=== PATIENT | male | born 2000 | race Caucasian/White ===

== ENCOUNTER 2025-01-31 16:56 | Observation (INO) ==
--- NOTE | 2025-01-31 17:02 | Emergency Department Note ---
Impression & Plan Acute appendicitis, Hypomagnesemia ED Provider Note CHIEF COMPLAINT: Abdominal pain HISTORY OF PRESENTING ILLNESS: This 24-year-old male patient presents to the emergency department for evaluation of RLQ abdominal pain that started at 4 AM this morning. He states that it feels like his stomach is in knots. He vomited once this morning. Denies any fevers. Denies chest pain or SOB. He denies any injury or trauma. He denies any urinary symptoms. He has not had a BM today, but has been having normal soft BMs 2-3 times a day which is his normal. He denies any testicular pain. Denies any masses or lesions in his groin area. No previous abdominal surgeries. The patient has a history of Ulcerative Colitis and is on Rinvoq. His last colonoscopy was last year per patient. He follows up with [facility]. No steroid use over the past year and he feels that his UC is well controlled. Denies hematochezia, melena, hematuria, hemoptysis, or hematemesis. He took ibuprofen around 9 am this morning. The patient last ate around 4 or 5 PM yesterday. He has had sips of water today, but nothing else. REVIEW OF SYSTEMS: See HPI for pertinent positives and pertinent negatives. ALLERGIES: Amoxicillin, Keflex - rash and facial swelling MEDICATIONS: Rinvoq PAST MEDICAL HISTORY: Ulcerative Colitis PHYSICAL EXAM: VITALS: Vitals are noted on the nurse's note and reviewed by myself. GENERAL: The patient is mildly ill-appearing and also appears nauseous. However, non toxic in appearance and in no acute distress. SKIN: Capillary refill <2 sec. EYES: PERRLA. EOMI. Conjunctivae without injection, sclerae without icterus. NOSE: Patent without discharge. MOUTH: Mucous membranes moist. Uvula midline. Airway patent. NECK: Supple without nuchal rigidity. HEART: Regular rate and rhythm without murmurs gallops or rubs. LUNGS: Clear to auscultation bilaterally without wheezes, rales or rhonchi. No retractions or accessory muscle use. ABDOMEN: Positive bowel sounds x 4. Normal tympanic percussion. Soft, tender to palpation mainly in the right lower quadrant. No masses or hepatosplenomegaly. Mckeon sign negative. No CVA tenderness. No guarding, rigidity, or rebound tenderness. No focal LLQ tenderness. MUSCULOSKELETAL: No gross musculoskeletal defects. NEURO: Patient was alert and oriented. No focal neurological deficits. DIFFERENTIAL DIAGNOSIS: Differential diagnosis includes hepatitis, pancreatitis, cholecystitis, cholelithiasis, appendicitis, kidney stone, pyelonephritis, UTI, gastritis, gastroenteritis, mesenteric adenitis, obstruction, constipation, hernia, abdominal abscess, perforation, diverticulitis, IBD, ischemic colitis, abdominal aortic aneurysm, testicular torsion, prostatitis, or others. ED COURSE AND MEDICAL DECISION MAKING: MEDICATIONS GIVEN: 1 L normal saline solution bolus. Tylenol 1000 mg IV. Zofran 4 mg IV. Morphine 4 mg IV. Magnesium 1 g IV. Cipro 400 mg IV and Flagyl 500 mg IV. MONITOR: Continuous telemetry monitor: Order was placed for continuous telemetry monitor. Patient was placed on the telemetry monitor and continuous pulse ox. Patient was noted to be in normal sinus rhythm at an initial rate of 94 bpm per my interpretation. INTERPRETATION OF LABS: I interpreted the labs with full lab results as below in the lab section of this note. Laboratory results pertinent to the emergent complaint are discussed in the MDM section below. The patient was advised to follow up with their PCP and/or specialist(s) for further outpatient monitoring and management of any abnormal results. INTERPRETATION OF IMAGING: Imaging studies were interpreted by myself and read by radiology as per the imaging section of this note. The patient was advised to follow up with their PCP and/or specialist(s) for further outpatient management of any non-emergent abnormal findings. CT scan of the abdomen and pelvis with IV contrast shows acute appendicitis with appendicolith present and no rupture or acute complication at this time. CHRONIC MEDICAL/SOCIAL CONDITIONS AFFECTING CARE: Ulcerative colitis CONSULTATIONS: Dr. Whitehead of general surgery. MDM SUMMARY: I examined the patient. The patient started with right lower quadrant abdominal pain at 4 AM this morning. Symptoms are getting progressively worse. He had 1 episode of vomiting. He has a history of ulcerative colitis, but states that his symptoms have been well-controlled recently. The patient has not had a bowel movement yet today which is somewhat abnormal for him. An IV lock was placed and labs were drawn. The patient was given 1 L normal saline solution bolus. He was given Tylenol 1000 mg IV and Zofran 4 mg IV followed by morphine 4 mg IV. The patient was also given magnesium 1 g IV due to his hypomagnesemia. White blood cell count elevated 11.91. Hemoglobin normal at 16.1. Platelet count normal at 257. Sodium low at 134 and anion gap elevated at 12. Glucose 118, AST 53, and ALT 129. CMP otherwise without concerning abnormalities. Lipase normal. Magnesium low at 1.4. Urinalysis was unremarkable. CT scan of the abdomen and pelvis with IV contrast shows acute appendicitis with appendicolith present and no rupture or acute complication at this time. I spoke with Dr. Whitehead of general surgery who presented to the ER to evaluate the patient to determine appropriate management for his acute appendicitis. Due to the patient's allergies, he was given IV Cipro and Flagyl preoperatively. Please refer to Dr. Whitehead' dictation for further details. The patient's care was transferred in stable condition. DIAGNOSIS: Acute appendicitis Hypomagnesemia Past Med/Surg History Problem List (Updated 01/31/25 @ 20:44 by Rossy Samuel PA-C) Hypomagnesemia (Acute) Acute appendicitis (Acute) Medical History (Updated 01/31/25 @ 20:44 by Rossy Samuel PA-C) Encounter for pre-operative examination Acute appendicitis with localized peritonitis Ulcerative colitis Social History Smoking Status: Never smoker Preferred Language: Eritrean Feels Safe at Home: Yes Allergies Allergies Allergy/AdvReac Type Severity Reaction Status Date / Time amoxicillin Allergy Rash, Verified 01/31/25 17:07 facial swelling cephalexin [From Keflex] Allergy Rash, Verified 01/31/25 17:07 facial swelling Home Meds Home Medications Medication Instructions Recorded Confirmed ibuprofen 0 mg PO DIRECTED PRN Pain 01/31/25 01/31/25 upadacitinib 30 mg tablet,extended 30 mg PO DAILY 01/31/25 01/31/25 release 24 hr (Rinvoq) Results & Data (ED) Vital Signs Vital Signs - 24 hr 01/31/25 16:58 01/31/25 17:07 01/31/25 17:18 Temperature 37.2 C Temperature Source Temporal Artery Scan Pulse Rate 104 H 98 H Pulse Rate [Apical] Pulse Rate from SpO2 Sensor 99 H Respiratory Rate 18 15 Respiratory Depth Blood Pressure 138/75 Blood Pressure [Left Arm] Blood Pressure Mean 96 Blood Pressure Mean [Left Arm] Pulse Oximetry 100 95 98 Oxygen Delivery Method Room Air Room Air Sepsis New/Unexplained Change in Mental Status No Sepsis Action Taken by Nursing No Action Required 01/31/25 17:21 01/31/25 17:22 01/31/25 17:33 Temperature Temperature Source Pulse Rate 94 H 99 H 90 Pulse Rate [Apical] Pulse Rate from SpO2 Sensor 89 89 Respiratory Rate 18 17 Respiratory Depth Blood Pressure Blood Pressure [Left Arm] Blood Pressure Mean Blood Pressure Mean [Left Arm] Pulse Oximetry 99 96 Oxygen Delivery Method Sepsis New/Unexplained Change in Mental Status Sepsis Action Taken by Nursing 01/31/25 18:42 01/31/25 19:12 01/31/25 19:49 Temperature Temperature Source Pulse Rate 100 H 90 Pulse Rate [Apical] 92 H Pulse Rate from SpO2 Sensor 98 H Respiratory Rate 18 14 20 Respiratory Depth Normal Blood Pressure 131/94 138/86 Blood Pressure [Left Arm] 132/94 Blood Pressure Mean 106 Blood Pressure Mean [Left Arm] 106 Pulse Oximetry 98 98 97 Oxygen Delivery Method Room Air Room Air Sepsis New/Unexplained Change in Mental Status Sepsis Action Taken by Nursing Laboratory Data 01/31/25 17:14 01/31/25 17:14 Lab Results 01/31/25 01/31/25 Range/Units 17:14 19:25 WBC 11.91 H (4.8-10.8) K/ul RBC 5.21 (4.70-6.10) M/uL Hgb 16.1 (14.0-18.0) g/dl Hct 45.5 (42.0-52.0) % MCV 87.3 (80.0-100.0) fL MCH 30.9 (25.0-34.0) pg MCHC 35.4 (32.0-36.0) g/dL RDW Std Deviation 40.9 (36.4-46.3) fL RDW Coeff of María 12.8 (11.5-14.5) % Plt Count 257 (130-400) K/uL MPV 10.2 (9.4-12.4) fL Immature Gran % (Auto) 0.3 % Neut % (Auto) 88.9 % Lymph % (Auto) 2.6 % Gregory % (Auto) 8.1 % Eos % (Auto) 0.0 % Baso % (Auto) 0.1 % Neut # (Auto) 10.59 H (1.40-6.50) K/uL Lymph # (Auto) 0.31 L (1.20-3.40) K/uL Gregory # (Auto) 0.96 H (0.11-0.59) K/uL Eos # (Auto) 0.00 (0.00-0.50) K/uL Baso # (Auto) 0.01 (0.00-0.20) K/uL Immature Gran # (Auto) 0.04 (0.01-0.20) K/uL Sodium 134 L (136-145) mmol/L Potassium 3.7 (3.5-5.1) mmol/L Chloride 97 L (98-107) mmol/L Carbon Dioxide 25 (21-32) mmol/L Anion Gap 12 H (3-11) BUN 12 (6-23) mg/dl Creatinine 0.90 (0.6-1.4) mg/dl Est Cr Clr Drug Dosing 138.9 ml/min eGFR 122.31 BUN/Creatinine Ratio 13.3 (10-20) Glucose 118 H (70-99(Fasting)) mg/dl Calcium 9.8 (8.6-10.3) mg/dl Magnesium 1.4 L (1.7-2.4) mg/dl Total Bilirubin 1.0 (0.2-1.0) mg/dl AST 53 H (13-39) U/L ALT 129 H (7-52) U/L Alkaline Phosphatase 62 (34-104) U/L Total Protein 8.0 (6.0-8.3) gm/dl Albumin 5.0 (3.4-5.0) gm/dl Globulin 3.0 (2.5-4.0) gm/dl Albumin/Globulin Ratio 1.7 (0.9-2) Lipase 32 (11-82) U/L Urine Color Yellow Urine Appearance Clear (Clear) Urine pH 6.5 (4.5-7.5) Ur Specific [place] 1.037 H (1.000-1.030) Urine Protein Negative (Negative) Urine Glucose (UA) Negative (Negative) Urine Ketones Negative (Negative) Urine Blood Negative (Negative) Urine Nitrite Negative (Negative) Urine Bilirubin Negative (Negative) Urine Urobilinogen Negative (Negative) Ur Leukocyte Esterase Negative (Negative) Urine Comment Administered Medications Discontinued Medications Sodium Chloride (Nss) 1,000 mls @ 999 mls/hr IV .Q1H1M ONE Stop: 01/31/25 18:07 Last Infusion: 01/31/25 18:16 Dose: Infused Documented By: Admin: 01/31/25 17:14 Dose: 999 mls/hr Documented By: KAREN Acetaminophen (Ofirmev) 1,000 mg in 100 mls @ 400 mls/hr IV NOW STA Stop: 01/31/25 17:21 Last Infusion: 01/31/25 18:16 Dose: Infused Documented By: Admin: 01/31/25 17:14 Dose: 400 mls/hr Documented By: KAREN Magnesium Sulfate/Dextrose (Magnesium Sulfate / D5w) 1 gm in 100 mls @ 100 mls/hr IV NOW STA Stop: 01/31/25 19:02 Last Admin: 01/31/25 18:16 Dose: 100 mls/hr Documented By: KAREN Metronidazole (Flagyl) 500 mg in 100 mls @ 100 mls/hr IV NOW STA; Protocol Stop: 01/31/25 20:10 Last Admin: 01/31/25 19:28 Dose: 100 mls/hr Documented By: MED Ioversol (Optiray 320 100ml) 92 ml IV ONCE ONE Stop: 01/31/25 18:05 Last Admin: 01/31/25 18:04 Dose: 92 ml Documented By: NATALIE Morphine Sulfate (Morphine Sulfate 4 Mg/Ml 1 Ml Carp\Vial) 4 mg IV NOW STA Stop: 01/31/25 18:35 Last Admin: 01/31/25 18:37 Dose: 4 mg Documented By: KAREN Ondansetron HCl (Ondansetron Inj 2 Mg/Ml 2 Ml Vial) 4 mg IV NOW STA Stop: 01/31/25 17:08 Last Admin: 01/31/25 17:14 Dose: 4 mg Documented By: KAREN Imaging Data Radiologist's Impression: Abdomen/Pelvis CT 01/31/25 17:07 EXAMINATION: Abdomen and pelvis CT with CLINICAL HISTORY: Right lower quadrant pain PRIORS: None TECHNIQUE: Contiguous axial images were obtained through the abdomen and pelvis with the use of intravenous contrast. Sagittal and coronal reformations are supplied. FINDINGS: Lung bases unremarkable. Mild bilateral gynecomastia noted. The liver is mildly enlarged measuring 17.8 cm. The gallbladder, pancreas, spleen, stomach, adrenals, aorta and IVC are morphologically unremarkable. Kidneys are in excretory phase with normal morphology and no hydronephrosis. An appendicolith present in the distal tip of the appendix. Appendix is dilated and fluid-filled, measuring up to 1.7 cm. Moderate periappendicular inflammatory change present inflammatory change. No rupture or extraluminal gas at this time. Small amount of gas present in the appendix lumen. No bowel obstruction. Colon is under distended. Urinary bladder distends normally. Prostate not enlarged. In bone windows, no acute osseous abnormality. IMPRESSION: CT features of acute appendicitis with appendicolith present and no rupture or acute complication at this time. Surgical consultation strongly encouraged. ACT 112: Positive. There are findings on this examination that require communication between the performing entity and the patient following Patient Test Result Information Act ([place] ACT 112) guidelines. Electronically signed by Ingrid Velasquez 01-31-2025 6:55 PM Discharge Plan Visit Data Chief Complaint: Abdominal Pain Stated Complaint: ABD PAIN ED Provider: Marin Young ED Midlevel Provider: Rossy Samuel Discharge Problem: Acute appendicitis, Hypomagnesemia Patient Disposition: Being Evaluated by Surgeon Condition: Fair Discharge Instructions Interventions: ED Discharge Assessment Last Done: 01/31/25 19:49
[2025-01-31] MEDS: ACETAMINOPHEN 1,000 MG/100 ML VIAL IV STA (17:14)
[2025-01-31] MEDS: ONDANSETRON INJ 2 MG/ML 2 ML VIAL IV STA (17:14)
[2025-01-31] MEDS: SODIUM CHLORIDE 0.9% 1,000 ML IV ONE (17:14)
[2025-01-31 17:34] LABS: Hematocrit (blood only) 45.5 % (42.0-52.0); Hemoglobin 16.1 g/dl (14.0-18.0); Immature Granulocytes # (auto) 0.04 K/uL (0.01-0.20); Immature Granulocytes % (auto) 0.3 %; Mean Corpuscular Hemoglobin 30.9 pg (25.0-34.0); Mean Corpuscular Volume 87.3 fL (80.0-100.0); Platelet Count 257 K/uL (130-400); RDW Standard Deviation 40.9 fL (36.4-46.3); Red Blood Count 5.21 M/uL (4.70-6.10); White Blood Count 11.91 K/ul (4.8-10.8)
[2025-01-31 17:51] LABS: Alanine Aminotransferase 129.0 U/L (7-52); Albumin Globulin Ratio 1.7 (0.9-2); Alkaline Phosphatase 62.0 U/L (34-104); Anion Gap 12.0 (3-11); Bilirubin,Total 1.0 mg/dl (0.2-1.0); Blood Urea Nitrogen 12.0 mg/dl (6-23); Calcium 9.8 mg/dl (8.6-10.3); Carbon Dioxide 25.0 mmol/L (21-32); Chloride 97.0 mmol/L (98-107); Creatinine Clr Calc Pharmacy 138.9 ml/min; Globulin 3.0 gm/dl (2.5-4.0); Glucose 118.0 mg/dl (70-99(Fasting)); Lipase 32.0 U/L (11-82); Magnesium 1.4 mg/dl (1.7-2.4); Potassium 3.7 mmol/L (3.5-5.1); Sodium 134.0 mmol/L (136-145); Total Protein 8.0 gm/dl (6.0-8.3)
[2025-01-31] MEDS: OPTIRAY 320 100ml IV ONE (18:04)
[2025-01-31] MEDS: MAGNESIUM SULFATE / D5W 1 GM/100 ML BAG IV STA (18:16)
[2025-01-31] MEDS: MoRPHine SULFATE 4 MG/ML 1 ML CARP\\VIAL IV STA (18:37)
--- NOTE | 2025-01-31 18:55 | CT Scan Report ---
EXAMINATION: Abdomen and pelvis CT with CLINICAL HISTORY: Right lower quadrant pain PRIORS: None TECHNIQUE: Contiguous axial images were obtained through the abdomen and pelvis with the use of intravenous contrast. Sagittal and coronal reformations are supplied. FINDINGS: Lung bases unremarkable. Mild bilateral gynecomastia noted. The liver is mildly enlarged measuring 17.8 cm. The gallbladder, pancreas, spleen, stomach, adrenals, aorta and IVC are morphologically unremarkable. Kidneys are in excretory phase with normal morphology and no hydronephrosis. An appendicolith present in the distal tip of the appendix. Appendix is dilated and fluid-filled, measuring up to 1.7 cm. Moderate periappendicular inflammatory change present inflammatory change. No rupture or extraluminal gas at this time. Small amount of gas present in the appendix lumen. No bowel obstruction. Colon is under distended. Urinary bladder distends normally. Prostate not enlarged. In bone windows, no acute osseous abnormality. IMPRESSION: CT features of acute appendicitis with appendicolith present and no rupture or acute complication at this time. Surgical consultation strongly encouraged. ACT 112: Positive. There are findings on this examination that require communication between the performing entity and the patient following Patient Test Result Information Act ([place] ACT 112) guidelines. Electronically signed by Ingrid Velasquez 01-31-2025 6:55 PM
[2025-01-31] MEDS: metroNIDAZOLE 500 MG/100 ML BAG IV STA (19:28)
--- NOTE | 2025-01-31 19:29 | History & Physical Report ---
Date of Service January 31, 2025 Assessment & Plan (1) Acute appendicitis with localized peritonitis: Plan: acute appendicitis, h/o UC but well controlled. plan for laparoscopic appendectomy risks discussed to include bleeding, infection, normal appendix, conversion to open, damage to surrounding structures, need for future or more extensive surgery, abscess, risks of anesthesia potential discharge this evening or tomorrow AM wound care instructions and activity restrictions reviewed return precautions given f/u in 2 weeks, call w/ questions or concerns (2) Ulcerative colitis: History of Present Illness Chief Complaint: abd pain Primary Care Provider: Hitesh Lopez MD 24 y/o male presents to ED with RLQ abd pain that woke him from sleep at 0400 this morning. +nausea, anorexia, no fevers. H/O UC on rinvoq, well controlled. No prior abd surgeries. Allergy to pcn/ceph. Allergies Allergy/AdvReac Type Severity Reaction Status Date / Time amoxicillin Allergy Rash, Verified 01/31/25 17:07 facial swelling cephalexin [From Keflex] Allergy Rash, Verified 01/31/25 17:07 facial swelling Home Medications Medication Instructions Recorded Confirmed Type ibuprofen 0 mg PO DIRECTED PRN Pain 01/31/25 01/31/25 History upadacitinib 30 mg tablet,extended 30 mg PO DAILY 01/31/25 01/31/25 History release 24 hr (Rinvoq) Past Med/Surg History Problem List Medical History (Updated 01/31/25 @ 19:41 by Robb Watson MD) Encounter for pre-operative examination Acute appendicitis with localized peritonitis Ulcerative colitis Social History Smoking Status: Never smoker Preferred Language: Japanese Feels Safe at Home: Yes Review of Systems Review of Systems: All systems reviewed & are unremarkable except as noted in HPI & below Physical Exam Constitutional: WD/WN, vitals as above Respiratory: normal respiratory effort, lungs clear to auscultation Cardiovascular: RRR, no murmur, no edema Gastrointestinal (Abdomen): Percussion/Palpation: + abdomen tender (RLQ TTP) and abdomen soft; no guarding and abdomen not rigid Results & Data Results & Data Vital Signs (Past 12 Hours) Vital Signs Temp Pulse Pulse Resp BP BP Pulse Ox 01/31/25 19:12 92 H 14 132/94 98 08/03/25 18:42 100 H 18 131/94 98 01/31/25 17:33 90 17 96 01/31/25 17:22 99 H 01/31/25 17:21 94 H 18 99 01/31/25 17:18 98 H 15 98 01/31/25 17:07 95 01/31/25 16:58 37.2 C 104 H 18 138/75 100 O2 Del Method 01/31/25 19:12 Room Air 01/31/25 18:42 01/31/25 17:33 01/31/25 17:22 01/31/25 17:21 01/31/25 17:18 01/31/25 17:07 Room Air 01/31/25 16:58 Room Air Laboratory Results Laboratory Results - last 24 hr 01/31/25 17:14 WBC 11.91 H RBC 5.21 Hgb 16.1 Hct 45.5 MCV 87.3 MCH 30.9 MCHC 35.4 RDW Std Deviation 40.9 RDW Coeff of María 12.8 Plt Count 257 MPV 10.2 Immature Gran % (Auto) 0.3 Neut % (Auto) 88.9 Lymph % (Auto) 2.6 [place] % (Auto) 8.1 Eos % (Auto) 0.0 Baso % (Auto) 0.1 Neut # (Auto) 10.59 H Lymph # (Auto) 0.31 L [place] # (Auto) 0.96 H Eos # (Auto) 0.00 Baso # (Auto) 0.01 Immature Gran # (Auto) 0.04 Sodium 134 L Potassium 3.7 Chloride 97 L Carbon Dioxide 25 Anion Gap 12 H BUN 12 Creatinine 0.90 Est Cr Clr Drug Dosing 138.9 eGFR 122.31 BUN/Creatinine Ratio 13.3 Glucose 118 H Calcium 9.8 Magnesium 1.4 L Total Bilirubin 1.0 AST 53 H ALT 129 H Alkaline Phosphatase 62 Total Protein 8.0 Albumin 5.0 Globulin 3.0 Albumin/Globulin Ratio 1.7 Lipase [address] personally reviewed and interpreted, agree with assessment of appendicitis with appendicolith, no perforation. Abdomen/Pelvis CT 01/31/25 17:07 EXAMINATION: Abdomen and pelvis CT with CLINICAL HISTORY: Right lower quadrant pain PRIORS: None TECHNIQUE: Contiguous axial images were obtained through the abdomen and pelvis with the use of intravenous contrast. Sagittal and coronal reformations are supplied. FINDINGS: Lung bases unremarkable. Mild bilateral gynecomastia noted. The liver is mildly enlarged measuring 17.8 cm. The gallbladder, pancreas, spleen, stomach, adrenals, aorta and IVC are morphologically unremarkable. Kidneys are in excretory phase with normal morphology and no hydronephrosis. An appendicolith present in the distal tip of the appendix. Appendix is dilated and fluid-filled, measuring up to 1.7 cm. Moderate periappendicular inflammatory change present inflammatory change. No rupture or extraluminal gas at this time. Small amount of gas present in the appendix lumen. No bowel obstruction. Colon is under distended. Urinary bladder distends normally. Prostate not enlarged. In bone windows, no acute osseous abnormality. IMPRESSION: CT features of acute appendicitis with appendicolith present and no rupture or acute complication at this time. Surgical consultation strongly encouraged. ACT 112: Positive. There are findings on this examination that require communication between the performing entity and the patient following Patient Test Result Information Act ([place] ACT 112) guidelines. Electronically signed by Ingrid Velasquez 01-31-2025 6:55 PM PG Care Time/CCT Total # of Minutes Spent Total Time Spent with Patient: Total time spent is greater than 50% in coordination of care (as documented) at patient's floor/unit and/or counseling patient: Coding Level of Care Code 02096 INT INP/OBS CARE MIN Diagnoses Acute appendicitis with localized peritonitis K35.30 Ulcerative colitis K51.90
[2025-01-31] MEDS ORDERED: PROMETHAZINE HCL 6.25 MG in SODIUM CHLORIDE 0.9% 50 ML IV PRN (19:39)
[2025-01-31] MEDS ORDERED: ONDANSETRON INJ 2 MG/ML 2 ML VIAL IV PRN ×2 (19:39→22:41)
[2025-01-31] MEDS ORDERED: HYDROmorphone INJ 2 MG/ML SYR/VIAL IV PRN (19:39)
[2025-01-31] MEDS ORDERED: ATROPINE SULFATE 0.1 MG/ML 10ML SYR IV PRN (19:39)
--- NOTE | 2025-01-31 19:41 | Anesthesiology Consultation ---
Date of Service January 31, 2025 Assessment & Plan (1) Encounter for pre-operative examination: Chart Review Chart Review: Acceptable Risk for Surgery and Patient NOT seen in Pre Admission Testing Consults Requested none History Surgery Operation Date: 01/31/25 20:30 Proposed Procedures p Laparoscopic Appendectomy - Loki Whitehead DO, FACS Height/Weight Height: 6 ft Weight: 88 kg Allergies Allergy/AdvReac Type Severity Reaction Status Date / Time amoxicillin Allergy Rash, Verified 01/31/25 17:07 facial swelling cephalexin [From Keflex] Allergy Rash, Verified 01/31/25 17:07 facial swelling Medications Home Medications Medication Instructions Recorded Confirmed Last Taken ibuprofen 0 mg PO DIRECTED PRN Pain 01/31/25 01/31/25 01/31/25 09:00 upadacitinib 30 mg tablet,extended 30 mg PO DAILY 01/31/25 01/31/25 Unknown release 24 hr (Rinvoq) Active Medications Generic Name Dose Route Start Last Admin Trade Name Freq PRN Reason Stop Dose Admin Metronidazole 500 mg in 100 mls @ 100 mls/hr 01/31/25 19:11 01/31/25 19:28 Flagyl IV 01/31/25 20:10 100 mls/hr NOW STA Administration Protocol Past Medical History Medical History (Updated 01/31/25 @ 19:41 by Robb Watson MD) Encounter for pre-operative examination Acute appendicitis with localized peritonitis Ulcerative colitis Exercise / Class Metabolic Activity II 4-5 Yardwork/Stairs/Walk up hill Past Anesthesia History No Hx of Anesthesia Complications and No Family Hx of Anesthesia Complications Social History Smoking Status: Never smoker Physical Exam Vital Signs Last Vital Signs Temp 37.2 C 01/31/25 16:58 Pulse 92 H 01/31/25 19:12 Resp 14 01/31/25 19:12 BP 132/94 01/31/25 19:12 Pulse Ox 98 01/31/25 19:12 O2 Del Method Room Air 01/31/25 19:12 Testing Laboratory Results 01/31/25 17:14 01/31/25 17:14
[2025-01-31 19:46] LABS: Appearance Urine Clear (Clear); Glucose Urine UA Negative (Negative)
[2025-01-31] MEDS ORDERED: SUCCINYLCHOLINE CHLORIDE 20 MG/ML 10 ML VIAL IV ONE (19:55)
[2025-01-31] MEDS ORDERED: DEXAMETHASONE SOD INJ 4 MG/ML VIAL ONE (19:55)
[2025-01-31] MEDS ORDERED: ONDANSETRON INJ 2 MG/ML 2 ML VIAL ONE (19:55)
[2025-01-31] MEDS ORDERED: LIDOCAINE 2% 2 ML VIAL/AMP(20MG/ML) INFIL ONE (19:55)
[2025-01-31] MEDS ORDERED: PROPOFOL IV EMULSION 10 MG/ML 20 ML VIAL IV ONE (19:55)
[2025-01-31] MEDS ORDERED: ROCURONIUM BROMIDE 10 MG/ML 5 ML VIAL IV ONE ×2 (19:55→21:07)
[2025-01-31] MEDS ORDERED: SUGAMMADEX SODIUM 200 MG/2 ML VIAL IV ONE (19:55)
[2025-01-31] MEDS ORDERED: MIDAZOLAM HCL 1 MG/ML 2ML VIAL ONE (19:55)
[2025-01-31] MEDS ORDERED: diphenhydrAMINE 50 MG/ML VIAL ONE (20:02)
[2025-01-31] MEDS ORDERED: KETOROLAC 30 MG/ML VIAL ONE (20:02)
[2025-01-31] MEDS: BUPIVACAINE 0.5 % 5 MG/1 ML MPF 30ML VIAL ONE (21:20)
--- NOTE | 2025-01-31 21:35 | Operative Report ---
PG Post Operative Report Pre & Post Diagnosis Operation Date: 01/31/25 20:30 Pre-Op Diagnosis: Acute appendicitis with localized peritonitis Post-Op Diagnosis: Acute appendicitis with localized peritonitis I identified the patient and participated in the time-out.: Yes Procedure Operation Date: 01/31/25 20:30 Actual Procedures p Laparoscopic Appendectomy(Not Applicable) - Loki Whitehead DO, FACS Surgeon Loki Whitehead DO, FACS Finish Photographer None Estimated Blood Loss 5 Findings Consistent with Post-Op Diagnosis Acute, suppurative appendicitis. Specimens Appendix Anesthesia Type General Complications none Disposition Accompanied Patient To Recovery: No Disposition: Recovery Room Indications 24-year-old male presenting with signs symptoms of acute appendicitis confirmed by CT, plan for laparoscopic appendectomy. The risks of the procedure were discussed, all questions were answered, and the patient agreed to proceed with surgery as planned. Description of Procedure The patient was properly identified, consented, and taken to the operating room where he was placed in the supine position. General endotracheal anesthesia was induced. SCDs and a safety belt were placed. Preoperative antibiotics were administered. A Crews catheter was not placed. The patient's abdomen was prepped and draped in the standard sterile fashion. Surgical timeout was performed and all parties were in agreement that this was the correct patient and procedure to be performed and we continued as planned. Incision was made just to the left and superior to the umbilicus. Veress needle was inserted. Saline drop test confirmed entry into the abdomen. The abdomen was insufflated with carbon dioxide which the patient tolerated without incident. The Veress needle was removed and the abdomen was entered using the Optiview technique with a 5 mm port and a 5 mm 30 degree scope. The introducer was removed and the laparoscope was inserted and no damage from initial trocar or Veress needle placement was noted, no gross abnormalities were noted within the 4 quadrants the abdomen. A 12 mm port was then placed in the left lower quadrant with care not to damage the epigastric vessels, and a 5 mm port was placed in the suprapubic midline with care not to damage the bladder. The patient was placed in Trendelenburg position and rotated towards the left. The small bowel was swept away from the right lower quadrant. The cecum was grasped with an atraumatic grasper exposing the appendix. The appendix was severely inflamed. It had significant amount of suppurative exudate, and had some patches that appeared like they might be gangrenous. There was no evidence of perforation. There was small amount of reactive fluid in the pelvis. A window was created between the base of the appendix and the mesoappendix. A virk loaded endoscopic stapler was then used to divide the appendix at its base. The Sonicision was then used to divide the mesoappendix. During the dissection there was a small perforation in the appendix which drained a small amount of purulent fluid. Hemostasis was good. The appendix was placed in an Endo Catch bag and removed through the umbilical port site. The right lower quadrant and pelvis was irrigated and hemostasis was found to be good. The fascia of the left lower quadrant port site was closed with a [id number] 0 Vicryl suture utilizing the Jaden-Wilma device. 5 mm trochars were removed and the abdomen was allowed to collapse. The wound was irrigated, and the skin of all ports was closed with 4-0 Monocryl subcuticular sutures. Dermabond was placed over the wounds. The patient was extubated in the operating room and taken to the PACU where he recovered without apparent incident. All sponge, instrument and needle counts were correct at the conclusion of the procedure. The patient tolerated the procedure well. I attest to the content of the Intraoperative Record and any orders documented therein. Any exceptions are noted below.
--- NOTE | 2025-01-31 22:03 | Anesthesiology Progress Note ---
Date of Service January 31, 2025 Anesthesia Post Procedure Vital Signs Vital Signs: Temp Pulse Pulse Resp BP BP Pulse Ox 01/31/25 19:49 90 20 138/86 97 01/31/25 19:12 92 H 14 132/94 98 01/31/25 18:42 100 H 18 131/94 98 01/31/25 17:33 90 17 96 01/31/25 17:22 99 H 01/31/25 17:21 94 H 18 99 01/31/25 17:18 98 H 15 98 01/31/25 17:07 95 01/31/25 16:58 37.2 C 104 H 18 138/75 100 O2 Del Method 01/31/25 19:49 Room Air 01/31/25 19:12 Room Air 01/31/25 18:42 01/31/25 17:33 01/31/25 17:22 01/31/25 17:21 01/31/25 17:18 01/31/25 17:07 Room Air 01/31/25 16:58 Room Air Pain Intensity Right Lower Abdomen: Pain Intensity: 9 Transfer of Care Handoff Completed per policy Notes Mental Status: alert / awake / arousable and participated in evaluation Patient Amnestic to Procedure: Yes Nausea / Vomiting: adequately controlled Pain: adequately controlled Airway Patency, RR, SpO2: stable & adequate BP & HR: stable & adequate Hydration State: stable & adequate Anesthetic Complications: no major complications apparent and Pt Satisfied with anesthetic care
[2025-01-31] MEDS ORDERED: diphenhydrAMINE 50 MG/ML VIAL IV PRN (22:41)
[2025-01-31] MEDS ORDERED: MoRPHine SULFATE 4 MG/ML 1 ML CARP\\VIAL IV PRN (22:41)
[2025-01-31] MEDS ORDERED: MoRPHine SULFATE 2 MG/ML CARP IV PRN (22:41)
[2025-01-31] MEDS: LACTATED RINGER'S 1,000 ML IV SCH (23:49)
[2025-01-31] MEDS: CIPROFLOXACIN / D5W 400 MG/200 ML BAG IV SCH (23:49)
[2025-02-01] MEDS: ACETAMINOPHEN 1,000 MG/100 ML VIAL IV SCH (02:35)
[2025-02-01] MEDS: KETOROLAC TROMETHAMINE 15 MG/ML VIAL IV SCH (02:35)
[2025-02-01] MEDS: metroNIDAZOLE 500 MG/100 ML BAG IV SCH (04:49)
[2025-02-01] MEDS ORDERED: CIPROFLOXACIN / D5W 400 MG/200 ML BAG IV SCH (06:00)
[2025-02-01 07:20] VITALS: TEMP 98.1; O2SAT 96
--- NOTE | 2025-02-01 07:29 | Surgery Progress Note ---
Date of Service February 01, 2025 Assessment & Plan (1) Acute appendicitis: Plan: s/p laparoscopic appendectomy last evening Labs this AM are pending. Vitals are stable pt feeling well overall, pain tolerable on clears doing well, will ADAT on IV abx for intraop findings, likely send home on some orals to complete small course if tolerates diet and continues to feel well will consider d/c to home today f/u in [address] bell Admission and Anticipated Discharge Date Admission Date: January 31, 2025 Supervising Physician Co-Signing Physician Notes Patient seen and examined, labs reviewed, agree with above. POD #1 lap appendectomy, doing well. Tolerating diet, ambulating, urinating. Pain controlled. On exam he is afebrile stable vitals. Abdomen soft, incisions without infection, appropriately tender to palpation. WBC normal. DC to home, continue oral antibiotics for 1 week. Follow-up with me in clinic in 2 weeks. Wound care instructions and activity restrictions reviewed. Call with questions or concerns. Return precautions given Subjective Patient reports being sore, but pain is better than what he presented with. Tolerating clears. no nausea/vomiting. + voiding Physical Exam Physical Exam: awake/alert, no distress Respiratory: normal respiratory effort Gastrointestinal (Abdomen): Inspection/Auscultation: + abdominal surgical incision (c/d/i with dermabond ) Percussion/Palpation: + abdomen tender (expe cted post op discomfort to palpation) and abdomen soft Results & Data Vital Signs (Past 12 Hours) Vital Signs Temp Pulse Pulse Pulse Resp BP BP 02/01/25 07:19 98.1 F 84 16 02/01/25 04:43 97.7 F 68 16 02/01/25 01:39 98.6 F 96 H 18 02/01/25 00:40 98.2 F 98 H 16 01/31/25 23:36 98.4 F 95 H 16 01/31/25 23:04 98.4 F 90 01/31/25 22:41 98.8 F 93 H 18 151/82 H 01/31/25 22:40 98.8 F 93 H 18 151/82 H 01/31/25 22:20 99.3 F 99 H 17 01/31/25 22:10 96 H 01/31/25 22:00 98 H 18 01/31/25 21:53 98.6 F 101 H 15 01/31/25 19:49 90 20 138/86 BP Pulse Ox O2 Del Method O2 Flow Rate 02/01/25 07:19 129/73 96 Room Air 02/01/25 04:43 138/77 97 Room Air 02/01/25 01:39 134/87 94 Room Air 02/01/25 00:40 116/71 94 Room Air 01/31/25 23:36 116/80 93 Room Air 01/31/25 23:04 124/78 93 Room Air 01/31/25 22:41 93 Room Air 01/31/25 22:40 93 Room Air 01/31/25 22:20 138/89 93 Room Air 01/31/25 22:10 128/85 95 Oxymask 5 01/31/25 22:00 134/86 97 Oxymask 5 01/31/25 21:53 145/98 H 95 Oxymask 5 01/31/25 19:49 97 Room Air PG Care Time/CCT Total # of Minutes Spent Total Time Spent with Patient: Total time spent is greater than 50% in coordination of care (as documented) at patient's floor/unit and/or counseling patient: Coding Level of Care Code 66510 Post Operative Follow-Up Diagnoses Acute appendicitis K35.80
[2025-02-01 08:00] LABS: Hematocrit (blood only) 44.5 % (42.0-52.0); Hemoglobin 14.8 g/dl (14.0-18.0); Mean Corpuscular Hemoglobin 29.9 pg (25.0-34.0); Mean Corpuscular Volume 89.9 fL (80.0-100.0); Platelet Count 232 K/uL (130-400); RDW Standard Deviation 42.5 fL (36.4-46.3); Red Blood Count 4.95 M/uL (4.70-6.10)
[2025-02-01 08:01] LABS: Immature Granulocytes # (auto) 0.01 K/uL (0.01-0.20); Immature Granulocytes % (auto) 0.2 %; White Blood Count 6.24 K/ul (4.8-10.8)
[2025-02-01 08:14] LABS: Alanine Aminotransferase 90.0 U/L (7-52); Albumin Globulin Ratio 1.6 (0.9-2); Alkaline Phosphatase 44.0 U/L (34-104); Anion Gap 7.0 (3-11); Bilirubin,Total 1.3 mg/dl (0.2-1.0); Blood Urea Nitrogen 10.0 mg/dl (6-23); Calcium 9.5 mg/dl (8.6-10.3); Carbon Dioxide 30.0 mmol/L (21-32); Chloride 102.0 mmol/L (98-107); Creatinine Clr Calc Pharmacy 120.2 ml/min; Globulin 2.7 gm/dl (2.5-4.0); Glucose 131.0 mg/dl (70-99(Fasting)); Potassium 4.6 mmol/L (3.5-5.1); Sodium 139.0 mmol/L (136-145); Total Protein 7.0 gm/dl (6.0-8.3)
[2025-02-01 13:21] VITALS: BP 125/74; PULSE 96; RESP 18
== END 2025-02-01 14:26 | disposition home or self-care (01) ==
LOC: ED 16:56 → 3N 19:49 → OR 19:49